=== PATIENT | female | born 1995 | race Caucasian/White ===

== ENCOUNTER 2019-03-27 19:54 | Inpatient (IN) ==
[2019-03-27] MEDS ORDERED: BUTORPHANOL 2 MG/ML VIAL IV PRN (20:45)
[2019-03-27] MEDS ORDERED: LACTATED RINGERS 1,000 ML IV SCH (21:00)
[2019-03-27 21:11] LABS: Basophils % 0.2 % (0.0-0.8); Eosinophils % 0.3 % (0.00-10.9); Hematocrit 40.5 VOL% (35.7-47.0); Hemoglobin 13.5 GM/DL (12.0-16.0); Immature Granulocytes % 0.5 %; Immature Granulocytes Absolute 0.06 #; Lymphocytes # 3.3 10*3/uL (1.4-4.0); Lymphocytes % 24.5 % (21.3-54.2); Mean Corpuscular HGB Conc 33.3 GM/DL (32-36); Mean Platelet Volume 12.9 FL (9.6-12.0); Neutrophils % 68.5 % (38.7-73.9); Platelet Count 261 T/CUMM (130-400); Red Blood Count 4.55 MC/CUMM (3.8-5.5); Red Cell Distribution Width 13.1 % (9.3-17.3); White Blood Count 13.3 T/CUMM (4-12)
[2019-03-27 21:22] LABS: INR 0.8; PT Patient Result 9.1 SECS (9.6-12.2)
[2019-03-27 21:27] LABS: Alanine Aminotransferase 131 U/L (13-56); Albumin 2.7 G/DL (3.4-5.0); Alkaline Phosphatase 236 U/L (45-117); Aspartate Amino Transferase 51 U/L (0-37); Bilirubin,Total < 0.39 MG/DL (0.2-1.0); Blood Urea Nitrogen 6 MG/DL (7-18); Calcium 9.2 MG/DL (8.5-10.1); Estimated Glom Filtration Rate 133 ML/MIN; Glucose 85 MG/DL (74-106); Osmolality,Calculated 269.8 MOS/KG (273-304); Total Protein 7.6 G/DL (6.4-8.3); Uric Acid 6.3 MG/DL (2.6-6.0)
[2019-03-27] MEDS: AMPICILLIN INJ 2,000 MG in SODIUM CHLORIDE 0.9% 100 ML IV SCH (22:10)
[2019-03-27] MEDS: ACETAMINOPHEN 325 MG TABLET PO PRN (22:51)
[2019-03-28] MEDS: LABETALOL 200 MG TABLET PO SCH ×3 (04:01→20:10)
[2019-03-28] MEDS: AMPICILLIN INJ 2,000 MG in SODIUM CHLORIDE 0.9% 100 ML IV SCH ×3 (04:06→16:30)
[2019-03-28] MEDS ORDERED: BUTORPHANOL 1 MG/ML VIAL IV PRN (06:13)
[2019-03-28] MEDS: ONDANSETRON 4 MG/2 ML VIAL IV PRN (06:22)
[2019-03-28] MEDS: ACETAMINOPHEN 325 MG TABLET PO PRN (10:44)
[2019-03-29] MEDS: ONDANSETRON 4 MG/2 ML VIAL IV PRN (01:09)
[2019-03-29] MEDS: ACETAMINOPHEN 325 MG TABLET PO PRN (01:47)
[2019-03-29] MEDS ORDERED: ceFAZolin 3,000 MG in SYRINGE 1 EACH IV ONE ×2 (03:26→07:00)
[2019-03-29] MEDS: LABETALOL 200 MG TABLET PO SCH ×2 (03:44→15:28)
[2019-03-29] MEDS: LACTATED RINGERS 1,000 ML IV SCH ×3 (04:28→17:26)
[2019-03-29] MEDS ORDERED: FAMOTIDINE 20 MG/2 ML VIAL IV ONE (05:30)
[2019-03-29] MEDS ORDERED: CITRIC ACID/SODIUM CITRATE 30 ML UDCUP PO ONE (05:30)
[2019-03-29] MEDS ORDERED: TERBUTALINE 1 MG/1 ML VIAL SUBCUT ONE (05:53)
[2019-03-29 06:06] LABS: Basophils % 0.3 % (0.0-0.8); Eosinophils % 0.1 % (0.00-10.9); Hematocrit 40.8 VOL% (35.7-47.0); Hemoglobin 13.4 GM/DL (12.0-16.0); Immature Granulocytes % 0.4 %; Immature Granulocytes Absolute 0.06 #; Lymphocytes # 3.1 10*3/uL (1.4-4.0); Lymphocytes % 22.7 % (21.3-54.2); Mean Corpuscular HGB Conc 32.8 GM/DL (32-36); Mean Corpuscular Volume 88.9 FL (87-102); Mean Platelet Volume 12.5 FL (9.6-12.0); Monocytes % 6.2 % (1.7-12.7); Neutrophils % 70.3 % (38.7-73.9); Platelet Count 244 T/CUMM (130-400); Red Blood Count 4.59 MC/CUMM (3.8-5.5); Red Cell Distribution Width 13.2 % (9.3-17.3); White Blood Count 13.7 T/CUMM (4-12)
[2019-03-29] MEDS ORDERED: METHYLERGONOVINE 0.2 MG/1 ML AMP ONE (06:59)
[2019-03-29] MEDS ORDERED: miSOPROStoL 200 MCG TABLET ONE (06:59)
[2019-03-29] MEDS ORDERED: CARBOPROST TROMETHAMINE 250 MCG/ML AMP IM ONE ×2 (06:59→07:38)
[2019-03-29] MEDS ORDERED: TRANEXAMIC ACID 1,000 MG/10 ML VIAL ONE (06:59)
[2019-03-29] MEDS ORDERED: OXYTOCIN/LR 20 UNIT/1,000 ML BAG IV ONE ×2 (07:00→08:14)
[2019-03-29 07:55] LABS: Cord Arterial Blood HCO3 24.7 MMOL/L; Cord Venous Blood HCO3 14.9 MMOL/L; Cord Venous Blood PCO2 91.3 MMHG
[2019-03-29 07:56] LABS: Cord Venous Blood PO2 9.1
[2019-03-29 08:12] LABS: Amorphous Crystals,Urine Occasional /HPF (Few); Apearance,Urine CLEAR (Clear); Bilirubin,Urine Negative (Negative); Blood, Urine Small mg/dL (Negative); Glucose,Urine (UA) Negative (Negative); Ketones,Urine 20 mg/dL (Negative); Mucus,Urine Moderate /LPF (Occasional); Nitrite,Urine Negative (Negative); Protein,Urine Negative; RBC,Urine 14 /HPF (0-4); Renal Epithelial Cells,Urine Occasional /HPF (<1); Squamous Epithelial Cell,Urine Occasional /HPF (0-10); Urine Color Yellow (Yellow); Urine Specific Gravity 1.018 (1.001-1.035); Urine Urobilinogen < 2.0 EU/DL (0.2-1.0); WBC,Urine <1 /HPF (0-6)
[2019-03-29] MEDS ORDERED: BENZOCAINE 20%/MENTHOL 0.5% SPRAY 56 GM CAN TOP PRN (08:14)
[2019-03-29] MEDS ORDERED: WITCH HAZEL PADS 100/JAR TOP PRN (08:14)
[2019-03-29] MEDS ORDERED: LANOLIN 50% CREAM 0.3 OZ TUBE TOP PRN (08:14)
[2019-03-29] MEDS ORDERED: RHO(D) IMMUNE GLOBULIN 300 MCG SYRINGE IM ONE (08:14)
[2019-03-29] MEDS ORDERED: ONDANSETRON 4 MG/2 ML VIAL IV PRN (08:14)
[2019-03-29] MEDS ORDERED: HYDROCORTISONE 2.5% RECTAL CREAM 30 GM TUBE TOP PRN (08:14)
[2019-03-29] MEDS ORDERED: ACETAMINOPHEN 325 MG TABLET PO PRN (08:14)
[2019-03-29] MEDS ORDERED: oxyCODONE/ACETAMINOPHEN 5-325 MG TABLET PO PRN ×2 (08:14)
[2019-03-29] MEDS ORDERED: DIPH/TET/ACEL PERT BOOSTER VACCINE 0.5 ML VIAL IM ONE (08:14)
[2019-03-29] MEDS ORDERED: BISACODYL 10 MG SUPP RECTAL PRN (08:14)
[2019-03-29] MEDS ORDERED: MEASLES/MUMPS/RUBELLA VACCINE 0.5 ML VIAL SUBCUT ONE (08:14)
[2019-03-29] MEDS ORDERED: MORPHINE 10 MG/10 ML VIAL ONE (08:41)
[2019-03-29] MEDS ORDERED: BUPIVACAINE SPINAL 0.75% 2 ML AMP SPINAL ONE (08:41)
[2019-03-29] MEDS ORDERED: LIDOCAINE 1% 5 ML VIAL ONE (08:41)
[2019-03-29] MEDS ORDERED: fentaNYL 100 MCG/2 ML VIAL ONE (08:42)
[2019-03-29] MEDS ORDERED: ONDANSETRON 4 MG/2 ML VIAL ONE (08:42)
[2019-03-29] MEDS ORDERED: PHENYLEPHRINE 1 MG/10 ML SYRINGE IV ONE (08:43)
[2019-03-29] MEDS: DOCUSATE SODIUM 100 MG CAPSULE PO SCH ×2 (09:31→20:24)
[2019-03-29] MEDS: IBUPROFEN 800 MG TABLET PO PRN ×2 (13:26→20:25)
[2019-03-29] MEDS: ceFAZolin 1,000 MG in SYRINGE 1 EACH IV SCH (16:54)
[2019-03-29] MEDS ORDERED: ALPRAZolam 0.25 MG TABLET PO ONE (17:08)
[2019-03-29] MEDS: SERTRALINE 50 MG TABLET PO SCH (20:25)
[2019-03-29] MEDS ORDERED: SIMETHICONE CHEW 80 MG TABLET PO PRN (21:41)
[2019-03-30] MEDS: ceFAZolin 1,000 MG in SYRINGE 1 EACH IV SCH (00:05)
[2019-03-30] MEDS: LABETALOL 200 MG TABLET PO SCH ×3 (00:21→15:25)
[2019-03-30] MEDS: IBUPROFEN 800 MG TABLET PO PRN ×4 (03:40→21:29)
[2019-03-30 05:30] LABS: Basophils % 0.2 % (0.0-0.8); Eosinophils # 0.1 10*3/uL (0.0-0.87); Eosinophils % 0.4 % (0.00-10.9); Hemoglobin 10.3 GM/DL (12.0-16.0); Immature Granulocytes % 0.4 %; Immature Granulocytes Absolute 0.05 #; Lymphocytes # 2.9 10*3/uL (1.4-4.0); Lymphocytes % 22.7 % (21.3-54.2); Mean Corpuscular HGB Conc 32.2 GM/DL (32-36); Mean Corpuscular Volume 90.7 FL (87-102); Mean Platelet Volume 11.9 FL (9.6-12.0); Monocytes % 7.9 % (1.7-12.7); Neutrophils % 68.4 % (38.7-73.9); Platelet Count 189 T/CUMM (130-400); Red Blood Count 3.53 MC/CUMM (3.8-5.5); Red Cell Distribution Width 13.3 % (9.3-17.3); White Blood Count 12.6 T/CUMM (4-12)
[2019-03-30] MEDS: MAGNESIUM HYDROXIDE SUSP 30 ML UDCUP PO PRN ×2 (09:45→21:31)
[2019-03-30] MEDS: DOCUSATE SODIUM 100 MG CAPSULE PO SCH ×2 (09:45→21:31)
[2019-03-30] MEDS: SERTRALINE 50 MG TABLET PO SCH (21:31)
[2019-03-31] MEDS: LABETALOL 200 MG TABLET PO SCH ×2 (00:05→08:18)
[2019-03-31] MEDS: IBUPROFEN 800 MG TABLET PO PRN (07:26)
[2019-03-31] MEDS: MAGNESIUM HYDROXIDE SUSP 30 ML UDCUP PO PRN (07:27)
[2019-03-31] MEDS: DOCUSATE SODIUM 100 MG CAPSULE PO SCH (07:27)
[2019-03-31 07:33] VITALS: BP 132/73
== END 2019-03-31 09:00 | disposition home or self-care (01) | DRG 788 ==
LOC: N.LDOUT 19:54 → N.LD 19:57 → N.OB 03-29 11:50
PROVIDERS: ADMIT Specialist; ATTEND Specialist
PROC: LDCSECT (ICD-10-PCS; 2019-03-29 06:50)